=== PATIENT | male | born 1960 | race Caucasian/White ===

== ENCOUNTER 2022-04-15 09:01 | Emergency (ER) | payer BC ==
[2022-04-15] MEDS ORDERED: Ketorolac 30 MG/ML SDV IVPUSH ONE (09:20)
[2022-04-15] MEDS ORDERED: Sodium Chloride 0.9% 10 ML Syringe FLUSH PRN (09:20)
[2022-04-15] MEDS ORDERED: hydrALAZINE 20 MG/ML SDV IVPUSH ONE (09:20)
[2022-04-15] MEDS ORDERED: Hydrochlorothiazide/Lisinopril 12.5-10 MG Tab PO SCH (11:00)
[2022-04-15] MEDS ORDERED: Lisinopril 10 MG Tab PO ONE (11:29)
[2022-04-15] MEDS ORDERED: Acetaminophen/oxyCODONE 325-5 MG Tab PO STA (12:36)
== END 2022-04-15 15:00 | disposition home or self-care (01) ==
LOC: FB.ED 09:01
DX: N23 Unspecified renal colic (principal); R59.0 Localized enlarged lymph nodes; I10 Essential (primary) hypertension; Z79.899 Other long term (current) drug therapy
CPT/HCPCS: 36415; 70450; 74176; 80048; 81001; 84153; 84484; 85027; 96374; 96375; 99284-25; A9270-GY; J0360; J1885; J3490

== ENCOUNTER 2025-05-13 15:44 | Emergency (ER) | payer BC ==
[2025-05-13] MEDS ORDERED: Lidocaine 1% 5 ML VIAL INFILT ONE (15:45)
[2025-05-13] MEDS: oxyCODONE 5 MG Tab PO ONE (16:38)
[2025-05-13] MEDS: Amoxicillin/Clavulanate K 875-125 MG Tab PO ONE (18:09)
== END 2025-05-13 18:10 | disposition home or self-care (01) ==
LOC: FB.ED 15:44
DX: S61.452A Open bite of left hand, initial encounter (principal); F41.9 Anxiety disorder, unspecified; I10 Essential (primary) hypertension; Z79.899 Other long term (current) drug therapy; W54.0XXA Bitten by dog, initial encounter
CPT/HCPCS: 12002; 70450; 73130-LT; 99284; A9270-GY; J2003